=== PATIENT | female | born 1955 | race Caucasian/White ===

== ENCOUNTER 2021-05-18 09:30 | Emergency (ER) | payer OTHER ==
--- NOTE | 2021-05-18 09:51 | ERPHSYRPT ---
- History of Present Illness Time Seen by Provider: 05/18/21 09:51 Source: patient Exam Limitations: no limitations Physician History: This is a 66-year-old white female patient who tested positive for COVID-19 infection back in March 2021 and presents with pain in her right calf. The patient has a history of DVT/PE in the past. She is no longer on any anticoagulation therapy. Recently, the patient traveled to and from [place]. She has had pain in the right calf for 5 days. She has no cough. She has no hemoptysis. She has no chest pain or shortness of breath. Her pain is localized into her right calf. Method of Injury: other (No injury) Occurred: days ago (5) Quality: constant, aching Severity of Pain-Max: mild (To moderate) Severity of Pain-Current: mild (To moderate) Lower Extremities Pain: leg: right (Calf) Modifying Factors: Improves With: movement Associated Symptoms: other (Right calf pain with ambulation) Allergies/Adverse Reactions: Penicillins Allergy (Verified 05/18/21 09:41) Home Medications: Metoprolol Succinate 12.5 mg PO DAILY 05/18/21 [History] Travel Risk - International Travel Have you traveled outside of the country in past 3 weeks: No - Coronavirus Screening Are you exhibiting any of the following symptoms?: No Close contact with a COVID-19 positive Pt in past 14-21 Days: No - Review of Systems Constitutional: No Symptoms Eyes: No Symptoms Ears, Nose, & Throat: No Symptoms Respiratory: No Symptoms Cardiac: No Symptoms Abdominal/Gastrointestinal: No Symptoms Genitourinary Symptoms: No Symptoms Musculoskeletal: Other (Painful right calf) Skin: No Symptoms Neurological: No Symptoms Psychological: No Symptoms Endocrine: No Symptoms Hematologic/Lymphatic: No Symptoms Immunological/Allergic: No Symptoms All Other Systems: Reviewed and Negative - Past Medical History Pertinent Past Medical History: Yes - Past Surgical History Past Surgical History: Yes - Nursing Vital Signs Nursing Vital Signs: Initial Vital Signs Temperature 97.8 F 05/18/21 09:44 Pulse Rate 68 05/18/21 09:44 Respiratory Rate 18 05/18/21 09:44 Blood Pressure 141/70 05/18/21 09:44 O2 Sat by Pulse Oximetry 100 05/18/21 09:44 Pain Scale Pain Intensity 5 - Physical Exam General Appearance: no apparent distress, alert, anxiety Eyes, Ears, Nose, Throat Exam: normal ENT inspection, moist mucous membranes Neck Exam: normal inspection, non-tender, supple, full range of motion Cardiovascular/Respiratory Exam: chest non-tender, normal breath sounds, regular rate/rhythm, heart sounds normal, no respiratory distress Gastrointestinal/Abdominal Exam: non-tender Back Exam: normal inspection, normal range of motion, No CVA tenderness, No vertebral tenderness Hips Exam: bilateral: non-tender, normal inspection, normal range of motion, no evidence of injury Legs Exam: right leg: soft tissue tenderness (Tenderness right calf. No evidence of swelling and no evidence of palpable cord. Positive Homans' sign right calf), left leg: non-tender, bilateral leg: normal inspection, normal range of motion, no evidence of injury Knees Exam: bilateral knee: non-tender, normal inspection, normal range of motion, no evidence of injury Ankle Exam: bilateral ankle: non-tender, normal inspection, normal range of motion, no evidence of injury Foot Exam: bilateral foot: non-tender, normal inspection, normal range of motion, no evidence of injury Neuro/Tendon Exam: normal sensation, normal motor functions, normal tendon functions Mental Status Exam: alert, oriented x 3, cooperative Skin Exam: normal color, warm, dry SpO2 Interpretation: normal O2 Delivery: Room Air - Course Nursing assessment & vital signs reviewed: Yes Ordered Tests: Active Orders 24 hr Category Date Time Status VENOUS UNILAT/LIMITED EXTREMIT [US] Stat Exams 05/18/21 09:57 Taken - Progress Progress: unchanged, pain not gone completely Progress Note: 05/18/21 10:45 Venous Doppler positive for distal (ankle level) venous thrombus. This is per metallurgy laboratory technician Counseled pt/family regarding: diagnosis, need for follow-up, rad results - Departure Departure Disposition: Home Clinical Impression: Deep venous thrombosis of distal end of right lower extremity Condition: Stable Critical Care Time: No Additional Instructions: Use Tylenol 650 mg every 6 hours for pain control. May apply heating pad to area at medium level 3 times a day but not directly onto your skin. Call your aerodynamic consultant today to make arrangements for an outpatient appointment for further evaluation and management. Take your medications as prescribed. They also contact Dr. Vicente's office to make arrangements for an outpatient appointment with them. Prescriptions: Apixaban [Eliquis 5 mg Tablet] 5 mg PO BID #30 tablet
[2021-05-18] MEDS ORDERED: ENOXAPARIN SODIUM SQ ONE ×2 (10:44→10:52)
--- NOTE | 2021-05-18 10:53 | XRAY ---
Indication: Right calf pain. Two-dimensional sonogram and color Doppler imaging of the major venous vessels of the right leg performed. Comparison: None Occluding thrombus in the posterior tibial vein. No thrombus seen in the remaining deep venous vessels of the right leg including greater saphenous vein. Patent veins demonstrate normal compressibility. Venous waveforms are normal with and without augmentation. Impression: Occluding DVT posterior tibial vein.
[2021-05-18 10:54] VITALS: BP 137/78; PULSE 58; O2SAT 99
== END 2021-05-18 10:58 | disposition home or self-care (01) ==
LOC: ED 09:30
DX: I82.441 Acute embolism and thrombosis of right tibial vein (principal); Z86.16 Personal history of COVID-19; Z86.718 Personal history of other venous thrombosis and embolism; Z79.01 Long term (current) use of anticoagulants
CPT/HCPCS: 93971; 96372; 99283; J1650

== ENCOUNTER 2021-05-21 20:08 | Emergency (ER) | payer OTHER ==
--- NOTE | 2021-05-21 20:33 | ERPHSYRPT ---
- History of Present Illness Time Seen by Provider: 05/21/21 20:15 Source: patient Exam Limitations: no limitations Patient Subjective Stated Complaint: burning pain to chest and left arm, back pain off and on all day. loose stools today, headache ever since started taking Eliquis. Triage Nursing Assessment: pt c/o rt chest burning sensation and rt shoulder pain, mid back pain. Pt has had loose stools today, headache for 2 days since taking the Eliquis. Lungs clear, heart tones reg. Pt appears to be anxious. Physician History: This 66-year-old white female who is a patient of Dr. Vicente and was just seen in the emergency room on 05/18/2021 and found to have a DVT in her right lower extremity. She was placed on Eliquis. Patient verbalizes that she is very nervous and anxious about her health. She also has signs of palpitation worry and is tearful. Intermittent throughout the day she has had some palpitations and burning sensation in her chest. Patient was already seen by her primary care doctor today. She did not have those symptoms at that time. Her doctor did not send her to the emergency room or have her undergo any types of study for this condition. Patient is on metoprolol for palpitations. Patient also arranged an appointment with her wheel cleaner. Timing/Duration: today Activities at Onset: none Quality: burning Location: substernal, central Chest Pain Radiation: no radiation Severity of Pain-Max: mild (To moderate) Severity of Pain-Current: mild (Moderate) Modifying Factors: Improves With: nothing Nitro Today/Relief: no nitro taken today Aspirin Treatment Today: no aspirin today Associated Symptoms: chest pain (Described as a burning) Prior Chest Pain/Cardiac Workup: no prior chest pain, no prior cardiac workup, non-cardiac Allergies/Adverse Reactions: Penicillins Allergy (Verified 05/21/21 20:28) Home Medications: Metoprolol Succinate 12.5 mg PO DAILY 05/18/21 [History] Hx Influenza Vaccination/Date Given: No Hx Pneumococcal Vaccination/Date Given: No Travel Risk - International Travel Have you traveled outside of the country in past 3 weeks: No - Coronavirus Screening Are you exhibiting any of the following symptoms?: Yes Symptoms: Vomiting/Diarrhea, Headaches/Body Aches/Fatigue Close contact with a COVID-19 positive Pt in past 14-21 Days: No - Vaccine Status Have you recieved a Covid-19 vaccination: Yes 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 - Vaccination Dates Date of 2cond Vaccination (if applicable): 08/2020 - Review of Systems Constitutional: No Symptoms Eyes: No Symptoms Ears, Nose, & Throat: No Symptoms Respiratory: No Symptoms Cardiac: Chest Pain (Described as a burning), Palpitations Abdominal/Gastrointestinal: No Symptoms Genitourinary Symptoms: No Symptoms Musculoskeletal: No Symptoms Skin: No Symptoms Neurological: No Symptoms Psychological: No Symptoms Endocrine: No Symptoms Hematologic/Lymphatic: No Symptoms Immunological/Allergic: No Symptoms All Other Systems: Reviewed and Negative - Past Medical History Pertinent Past Medical History: Yes Neurological History: No Pertinent History ENT History: No Pertinent History Cardiac History: Arrhythmia, Deep Vein Thrombosis Respiratory History: Asthma Endocrine Medical History: No Pertinent History Musculoskeletal History: No Pertinent History GI Medical History: No Pertinent History History: No Pertinent History Psycho-Social History: No Pertinent History Female Reproductive Disorders: No Pertinent History Other Medical History: Eczema. hx of PE 10 years ago - Past Surgical History Past Surgical History: Yes Neuro Surgical History: No Pertinent History Cardiac: No Pertinent History Respiratory: No Pertinent History Gastrointestinal: No Pertinent History Genitourinary: No Pertinent History Musculoskeletal: Orthopedic Surgery Female Surgical History: Hysterectomy Other Surgical History: Back and neck surgery X 2 - Social History Smoking Status: Never smoker Exposure to second hand smoke: No Drug Use: none Patient Lives Alone: No - Female History Hx Now: No - Nursing Vital Signs Nursing Vital Signs: Initial Vital Signs Temperature 98.0 F 05/21/21 20:09 Pulse Rate 96 H 05/21/21 20:09 Respiratory Rate 20 05/21/21 20:09 Blood Pressure 125/57 05/21/21 20:09 O2 Sat by Pulse Oximetry 97 05/21/21 20:09 Pain Scale Pain Intensity 5 - Physical Exam General Appearance: no apparent distress, alert, anxiety Eye Exam: PERRL/EOMI, eyes nml inspection Ears, Nose, Throat Exam: normal ENT inspection, moist mucous membranes Neck Exam: normal inspection, non-tender, supple, full range of motion Respiratory Exam: normal breath sounds, chest tenderness, lungs clear, airway intact, No respiratory distress Cardiovascular Exam: regular rate/rhythm, normal heart sounds, normal peripheral pulses Gastrointestinal/Abdomen Exam: soft, normal bowel sounds, No tenderness Pelvic Exam: not done Rectal Exam: not done Back Exam: normal inspection, normal range of motion, No CVA tenderness, No vertebral tenderness Extremity Exam: normal inspection, normal range of motion, pelvis stable Neurologic Exam: alert, oriented x 3, cooperative, gas scrubber operator II-XII nml as tested, normal mood/affect, nml cerebellar function, nml station & gait, sensation nml Skin Exam: normal color, warm, dry Lymphatic Exam: No adenopathy SpO2 Interpretation: normal SpO2: 97 O2 Delivery: Room Air - Course Nursing assessment & vital signs reviewed: Yes EKG Interpreted by Me: RATE (95), Sinus Rhythm, NORMAL AXIS, NORMAL INTERVALS, NORMAL QRS, NORMAL ST-T, Other (No acute ischemic changes on today's EKG.) Ordered Tests: Active Orders 24 hr Category Date Time Status EKG-ER Only STAT Care 05/21/21 20:33 Active IV Insertion STAT Care 05/21/21 20:33 Active CHEST WITH CONTRAST [CT] Stat Exams 05/21/21 20:33 Taken CBC W DIFF Stat Lab 05/21/21 20:40 Completed CMP Stat Lab 05/21/21 20:40 Completed MAGNESIUM Stat Lab 05/21/21 20:40 Completed NT PRO BNP Stat Lab 05/21/21 20:40 Completed TROPONIN Q3H Lab 05/21/21 20:40 Completed TROPONIN Q3H Lab 05/21/21 23:45 Ordered TROPONIN Q3H Lab 05/22/21 02:45 Ordered TROPONIN Q3H Lab 05/22/21 05:45 Ordered TROPONIN Q3H Lab 05/22/21 08:45 Ordered Medication Summary Generic Name Dose Route Start Last Admin Trade Name Freq PRN Reason Stop Dose Admin Sodium Chloride 1,000 mls @ 100 mls/hr 05/21/21 20:45 05/21/21 20:45 Sodium Chloride 0.9% 1000 Ml IV 06/20/21 20:44 100 mls/hr .Q10H RICO Administration Discontinued Medications Generic Name Dose Route Start Last Admin Trade Name Freq PRN Reason Stop Dose Admin Lorazepam 1 mg 05/21/21 21:36 05/21/21 22:44 Lorazepam 2 Mg/1 Ml 2 Mg Vial IV 05/21/21 21:37 1 mg STAT ONE Administration Lorazepam Confirm 05/21/21 22:42 Lorazepam 2 Mg/1 Ml 2 Mg Vial Administered 05/21/21 22:43 Dose 2 mg .ROUTE .STK-MED ONE Lab/Rad Data: Laboratory Result Diagrams 05/21/21 20:40 05/21/21 20:40 Laboratory Results 05/21/21 05/21/21 05/21/21 Range/Units 20:40 20:40 20:40 WBC 8.6 (4.0-10.5) K/mm3 RBC 4.43 (4.1-5.4) M/mm3 Hgb 13.3 (12.0-16.0) gm/dl Hct 41.3 (35-47) % MCV 93.2 (78-100) fl MCH 30.0 (26-32) pg MCHC 32.2 (32-36) g/dl RDW 13.0 (11.5-14.0) % Plt Count 299 (150-450) K/mm3 MPV 9.0 (7.5-11.0) fl Gran % 76.6 H (36.0-66.0) % Eos # (Auto) 0.08 (0-0.5) Absolute Lymphs (auto) 1.26 (1.0-4.6) Absolute Monos (auto) 0.63 (0.0-1.3) Lymphocytes % 14.7 L (24.0-44.0) % Monocytes % 7.4 (0.0-12.0) % Eosinophils % 0.9 (0.00-5.0) % Basophils % 0.4 (0.0-0.4) % Absolute Granulocytes 6.55 (1.4-6.9) Basophils # 0.03 (0-0.4) Sodium 141 (137-145) mmol/L Potassium 4.0 (3.5-5.1) mmol/L Chloride 106 (98-107) mmol/L Carbon Dioxide 26 (22-30) mmol/L Anion Gap 13.6 (5-15) MEQ/L BUN 13 (7-17) mg/dL Creatinine 0.67 (0.52-1.04) mg/dL Estimated GFR > 60.0 ML/MIN Glucose 114 H (74-106) mg/dL Calcium 9.7 (8.4-10.2) mg/dL Magnesium 1.9 (1.6-2.3) mg/dL Total Bilirubin 0.50 (0.2-1.3) mg/dL AST 25 (14-36) U/L ALT 27 (0-35) U/L Alkaline Phosphatase 70 (38-126) U/L Troponin I < 0.012 (0.000-0.034) ng/mL NT-Pro-B Natriuret Pep 37.1 (0-900) pg/mL Serum Total Protein 6.7 (6.3-8.2) g/dL Albumin 4.1 (3.5-5.0) g/dL - Progress Progress: improved, re-examined Air Movement: good Progress Note: 05/21/21 23:26 CAT scan of the chest with contrast shows small filling defects in the right mid to lower distal lung. The heart is normal per radiologist report. Medical decision making: I spoke with the patient's primary care doctor Dr. Vicente. I reviewed the patient history, physical findings and the CT a of the chest results. Dr. Vicente also feels that the patient does not need to be admitted into the hospital at this time. She can be discharged to home. We will increase the Eliquis to 10 mg orally twice a day. The original prescription was written on May 18, 2021. It was for Eliquis 5 mg number 30 tablets. Patient took her 5 mg twice a day Eliquis since that time and again today. She still has, according to her, 23 more doses. She has an appointment to see her wheel cleaner on May 25, 2021. She was told to increase her Eliquis dosing to 10 mg orally twice a day. She should have plenty of her current Eliquis tablets to get her to an past her hematology appointment on May 25, 2021. Patient's room air oxygenation at the time of discharge is 97% and her heart rate was in the low 80s. 05/21/21 23:29 05/21/21 23:30 Blood Culture(s) Obtained: No Discussed with DrDonte: Gilberto Counseled pt/family regarding: lab results, diagnosis, need for follow-up, rad results - Departure Departure Disposition: Home Clinical Impression: Right pulmonary embolus Condition: Stable Critical Care Time: Yes Critical Care Time(excluding separately billable procedures): Critical 30-74 mins Referrals: DIONISIO VICENTE, DO [Primary Care Provider] - Follow up/PCP as directed Additional Instructions: Increase your Eliquis to 10 mg orally twice a day. Do not change this dosing until after you were evaluated by your wheel cleaner on May 25, 2021. Take your other medications as prescribed. Return to the emergency department if your symptoms worsen.
[2021-05-21] MEDS ORDERED: Sodium Chloride 0.9% 1000 ML 1,000 ML ONE (20:43)
[2021-05-21] MEDS ORDERED: Sodium Chloride 0.9% 1000 ML 1,000 ML IV SCH (20:45)
[2021-05-21 20:50] LABS: Absolute Neutrophil Ct (ANC) 6.55 (1.4-6.9); Basophil (Absolute #) 0.03 (0-0.4); Eosinophil % 0.9 % (0.00-5.0); Eosinophil (Absolute #) 0.08 (0-0.5); Hematocrit 41.3 % (35-47); Hemoglobin 13.3 gm/dl (12.0-16.0); Lymphocyte (Absolute #) 1.26 (1.0-4.6); Lymphocytes % 14.7 % (24.0-44.0); Mean Cell Volume 93.2 fl (78-100); Mean Corpuscular Hgb Concent. 32.2 g/dl (32-36); Monocyte (Absolute #) 0.63 (0.0-1.3); Monocytes % 7.4 % (0.0-12.0); Neutrophil % 76.6 % (36.0-66.0); Platelet Count 299 K/mm3 (150-450); Red Blood Count 4.43 M/mm3 (4.1-5.4); White Blood Count 8.6 K/mm3 (4.0-10.5)
[2021-05-21 21:22] LABS: ALBUMIN 4.1 g/dL (3.5-5.0); ALKALINE PHOSPHATASE 70 U/L (38-126); ANION GAP 13.6 MEQ/L (5-15); BLOOD UREA NITROGEN 13 mg/dL (7-17); CHLORIDE 106 mmol/L (98-107); Calcium 9.7 mg/dL (8.4-10.2); Carbon Dioxide 26 mmol/L (22-30); Creatinine 1 0.67 mg/dL (0.52-1.04); EST GLOMERULAR FILTRATION RATE > 60.0 ML/MIN; Glucose 114 mg/dL (74-106); MAGNESIUM 1.9 mg/dL (1.6-2.3); NT PRO BNP 37.1 pg/mL (0-900); SGOT/AST 25 U/L (14-36); SGPT/ALT 27 U/L (0-35); SODIUM 141 mmol/L (137-145); Total Protein 6.7 g/dL (6.3-8.2)
[2021-05-21] MEDS ORDERED: Ativan 2 MG/1 ML VIAL IV ONE (21:36)
[2021-05-21] MEDS ORDERED: Ativan 2 MG/1 ML VIAL ONE (22:42)
[2021-05-21] MEDS ORDERED: ELIQUIS 2.5 MG TABLET PO ONE (23:26)
[2021-05-22 00:22] VITALS: BP 126/75; PULSE 76; O2SAT 98
--- NOTE | 2021-05-22 08:25 | XRAY ---
Indication: Chest pain and palpitations. Right leg DVT. Multiple contiguous axial images obtained through the chest using 80 cc of Isovue-370 contrast and PE protocol. Comparison: None Good opacification of the pulmonary arteries to include the lobar and segmental branches. Tiny nonoccluding pulmonary emboli in the medial segmental branch right middle lobe and medial segmental branch right lower lobe. Heart not enlarged. Aorta is normal in course and caliber. Tiny subcarinal and distal paraesophageal calcified nodes. No pathologic mediastinal/hilar lymphadenopathy. Lungs demonstrates mild dependent atelectasis. No suspicious pulmonary mass, infiltrate, or effusion. Bony thorax intact with minimal degenerative changes throughout the spine and C7-T1 fusion hardware. Limited upper abdomen demonstrates two 1.5 cm hepatic cysts, two left renal cysts largest 2 cm and splenic calcified granulomas. Impression: 1. Nonoccluding right middle and right lower lobe pulmonary emboli. 2. Incidental hepatic/left renal cysts and old granulomatous disease. Comment: Preliminary interpretation made by C. No critical discrepancy.
== END 2021-05-22 00:23 | disposition home or self-care (01) ==
LOC: ED 20:08
DX: I26.99 Other pulmonary embolism without acute cor pulmonale (principal); R07.9 Chest pain, unspecified; R00.2 Palpitations; Z86.711 Personal history of pulmonary embolism; Z79.01 Long term (current) use of anticoagulants
CPT/HCPCS: 36000; 36415; 71260; 80053; 83735; 83880; 84484; 85025; 93005; 96374; 99284; 99291; J2060; A9270-GY

== ENCOUNTER 2022-01-19 11:10 | Emergency (ER) | payer OTHER ==
--- NOTE | 2022-01-19 11:13 | ERPHSYRPT ---
- History of Present Illness Time Seen by Provider: 01/19/22 11:13 Source: patient Exam Limitations: no limitations Physician History: This is a 66-year-old white female patient of Dr. Vicente who presents with shakiness and weakness. She also felt that maybe she had swelling in her feet and ankles. She wakes up every morning and takes her heart rate and her blood p ressure. Patient is on metoprolol chronically for arrhythmia/chronic tachycardia issues. 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 She denies chest pain. She denies shortness of breath. She denies abdominal pain. Patient has a history of asthma. Her first systolic blood pressure that she took this morning was 148 per her report. She drove in the car to a meeting and the shakiness and weakness was worse that she took her blood pressure again and the systolic pressure was in the 170s. She contacted her primary care physician's office who referred her to the [facility]. [facility] referred her to us. Patient arrives to the emergency department with the initial systolic blood pressure in the 140's and heart rate in the 60s. Patient seems anxious. Her blood sugar level on arrival to the emergency department is 114 Timing/Duration: today Severity: mild Modifying Factors: Improves With: nothing Associated Symptoms: weakness, No nausea, No vomiting, No abdominal pain, No shortness of breath, No chest pain Allergies/Adverse Reactions: cephalexin [From Keflex] Allergy (Mild, Verified 01/19/22 11:25) Rash Penicillins Allergy (Verified 05/21/21 20:28) Home Medications: Metoprolol Succinate 12.5 mg PO DAILY 05/18/21 [History] Apixaban [Eliquis 5 mg Tablet] 2.5 mg PO BID 01/19/22 [History] Hx Influenza Vaccination/Date Given: No Hx Pneumococcal Vaccination/Date Given: No Travel Risk - International Travel Have you traveled outside of the country in past 3 weeks: No - Coronavirus Screening Are you exhibiting any of the following symptoms?: No Close contact with a COVID-19 positive Pt in past 14-21 Days: No - Vaccine Status Have you recieved a Covid-19 vaccination: Yes Layout Former: Moderna - Vaccination Dates Date of 2cond Vaccination (if applicable): 08/2020 - Review of Systems Constitutional: Weakness Eyes: No Symptoms Ears, Nose, & Throat: No Symptoms Respiratory: No Symptoms Cardiac: No Symptoms Abdominal/Gastrointestinal: No Symptoms Genitourinary Symptoms: No Symptoms Musculoskeletal: No Symptoms Skin: No Symptoms Neurological: No Symptoms Psychological: Anxiety Endocrine: No Symptoms Hematologic/Lymphatic: No Symptoms Immunological/Allergic: No Symptoms All Other Systems: Reviewed and Negative - Past Medical History Pertinent Past Medical History: Yes Neurological History: No Pertinent History ENT History: No Pertinent History Cardiac History: Arrhythmia, Deep Vein Thrombosis Respiratory History: Asthma Endocrine Medical History: No Pertinent History Musculoskeletal History: No Pertinent History GI Medical History: No Pertinent History History: No Pertinent History Psycho-Social History: No Pertinent History Female Reproductive Disorders: No Pertinent History Other Medical History: Eczema. hx of PE 10 years ago - Past Surgical History Past Surgical History: Yes Neuro Surgical History: No Pertinent History Cardiac: No Pertinent History Respiratory: No Pertinent History Gastrointestinal: No Pertinent History Genitourinary: No Pertinent History Musculoskeletal: Orthopedic Surgery Female Surgical History: Hysterectomy Other Surgical History: Back and neck surgery X 2 - Social History Smoking Status: Never smoker Exposure to second hand smoke: No Drug Use: none Patient Lives Alone: No - Nursing Vital Signs Nursing Vital Signs: Initial Vital Signs Temperature 98.9 F 01/19/22 11:20 Pulse Rate 70 01/19/22 11:20 Respiratory Rate 22 01/19/22 11:20 Blood Pressure 148/60 01/19/22 11:20 O2 Sat by Pulse Oximetry 100 01/19/22 11:20 Pain Scale Pain Intensity 0 - Physical Exam General Appearance: no apparent distress, alert, anxiety Eye Exam: PERRL/EOMI, eyes nml inspection Ears, Nose, Throat Exam: normal ENT inspection, moist mucous membranes Neck Exam: normal inspection, non-tender, supple, full range of motion Respiratory Exam: normal breath sounds, lungs clear, airway intact, No chest tenderness, No respiratory distress Cardiovascular Exam: regular rate/rhythm, normal heart sounds, normal peripheral pulses Gastrointestinal/Abdomen Exam: soft, normal bowel sounds, No tenderness Pelvic Exam: not done Rectal Exam: not done Back Exam: normal inspection, normal range of motion, No CVA tenderness, No vertebral tenderness Extremity Exam: normal inspection, normal range of motion, pelvis stable Neurologic Exam: alert, oriented x 3, cooperative, mainspring strip gauger II-XII nml as tested, normal mood/affect, nml cerebellar function, nml station & gait, sensation nml Skin Exam: normal color, warm, dry Lymphatic Exam: No adenopathy SpO2 Interpretation: normal O2 Delivery: Room Air - Course Nursing assessment & vital signs reviewed: Yes EKG Interpreted by Me: RATE (68), Sinus Rhythm, NORMAL AXIS, NORMAL INTERVALS, NORMAL QRS, NORMAL ST-T, Other (No acute ischemic changes on today's EKG.) Ordered Tests: Active Orders 24 hr Category Date Time Status EKG-ER Only STAT Care 01/19/22 11:50 Active IV Insertion STAT Care 01/19/22 11:50 Active Pulse Oximetry (ED) STAT Care 01/19/22 11:50 Active CBC W DIFF Stat Lab 01/19/22 11:50 Completed CMP Stat Lab 01/19/22 11:50 Completed D-DIMER QUANTITATIVE Stat Lab 01/19/22 11:50 Completed [place] Screen Stat Lab 01/19/22 11:50 Completed NT PRO BNP Stat Lab 01/19/22 11:50 Completed POCT GLUCOSE Stat Lab 01/19/22 11:32 Completed T4 (Thyroxine) Stat Lab 01/19/22 11:50 Received TROPONIN Q4H Lab 01/19/22 12:00 Completed TROPONIN Q4H Lab 01/19/22 16:00 Ordered TROPONIN Q4H Lab 01/19/22 20:00 Ordered TSH [TSH, 3RD Generation] Stat Lab 01/19/22 11:50 Received UA W/RFX CULTURE Stat Lab 01/19/22 Completed Medication Summary Discontinued Medications Generic Name Dose Route Start Last Admin Trade Name Harini PRN Reason Stop Dose Admin Sodium Chloride 1,000 mls @ 999 mls/hr 01/19/22 11:50 01/19/22 12:38 Sodium Chloride 0.9% 1000 Ml IV 01/19/22 12:50 999 mls/hr .Q1H1M STA Administration Sodium Chloride Confirm 01/19/22 12:21 Sodium Chloride 0.9% 1000 Ml Administered 01/19/22 12:22 Dose 1,000 mls @ ud .ROUTE .STK-MED ONE Lab/Rad Data: Laboratory Result Diagrams 01/19/22 11:50 01/19/22 11:50 Laboratory Results 01/19/22 01/19/22 01/19/22 Range/Units Unknown 12:00 12:00 WBC (4.0-10.5) x10^3/uL RBC (4.1-5.4) x10^6/uL Hgb (12.0-16.0) g/dL Hct (35-47) % MCV (78-100) fL MCH (26-32) pg MCHC (32-36) g/dL RDW (11.5-14.0) % Plt Count (150-450) x10^3/uL MPV (7.5-11.0) fL Gran % (36.0-66.0) % Immature Gran % (Auto) (0.00-0.4) % Nucleat RBC Rel Count (0.00-0.1) % Eos # (Auto) (0-0.5) x10^3/uL Immature Gran # (Auto) (0.00-0.03) x10^3u/L Absolute Lymphs (auto) (1.0-4.6) x10^3/uL Absolute Monos (auto) (0.0-1.3) x10^3/uL Absolute Nucleated RBC (0.00-0.01) x10^3u/L Lymphocytes % (24.0-44.0) % Monocytes % (0.0-12.0) % Eosinophils % (0.00-5.0) % Basophils % (0.0-0.4) % Absolute Granulocytes (1.4-6.9) x10^3/uL Basophils # (0-0.4) x10^3/uL D-Dimer (0.0-0.50) mg/L Sodium (137-145) mmol/L Potassium (3.5-5.1) mmol/L Chloride (98-107) mmol/L Carbon Dioxide (22-30) mmol/L Anion Gap (5-15) MEQ/L BUN (7-17) mg/dL Creatinine (0.52-1.04) mg/dL Estimated GFR ML/MIN Glucose (74-106) mg/dL POC Glucometer (74 to 106) mg/dL Calcium (8.4-10.2) mg/dL Total Bilirubin (0.2-1.3) mg/dL AST (14-36) U/L ALT (0-35) U/L Alkaline Phosphatase (38-126) U/L Troponin I < 0.012 (0.000-0.034) ng/mL NT-Pro-B Natriuret Pep (0-900) pg/mL Serum Total Protein (6.3-8.2) g/dL Albumin (3.5-5.0) g/dL Urinalys Dipstick Clnc MAIN LAB Urine Color YELLOW (YELLOW) Urine Appearance CLEAR (CLEAR) Urine pH 6.0 (5-6) Ur Specific [place] <=1.005 (1.005-1.025) POC Urine Protein Conf NEGATIVE (Negative) Urine Ketones NEGATIVE (NEGATIVE) Urine Nitrite NEGATIVE (NEGATIVE) Urine Bilirubin NEGATIVE (NEGATIVE) Urine Urobilinogen 0.2 (0-1) mg/dL Urine Leukocytes NEGATIVE (NEGATIVE) Urine WBC (Auto) Not Reportable Urine RBC (Auto) Not Reportable U Epithel Cells (Auto) Not Reportable Urine Bacteria (Auto) Not Reportable Urine RBC NEGATIVE (0-5) Demetrio/ul Ur Culture Indicated? NO Urine Glucose NEGATIVE (NEGATIVE) mg/dL Monoscreen (Negative) Influenza Type A Ag NEGATIVE (NEGATIVE) Influenza Type B Ag NEGATIVE (NEGATIVE) RSV (PCR) NEGATIVE (Negative) SARS-CoV-2 (PCR) NEGATIVE (NEGATIVE) 01/19/22 01/19/22 01/19/22 Range/Units 11:50 11:50 11:50 WBC (4.0-10.5) x10^3/uL RBC (4.1-5.4) x10^6/uL Hgb (12.0-16.0) g/dL Hct (35-47) % MCV (78-100) fL MCH (26-32) pg MCHC (32-36) g/dL RDW (11.5-14.0) % Plt Count (150-450) x10^3/uL MPV (7.5-11.0) fL Gran % (36.0-66.0) % Immature Gran % (Auto) (0.00-0.4) % Nucleat RBC Rel Count (0.00-0.1) % Eos # (Auto) (0-0.5) x10^3/uL Immature Gran # (Auto) (0.00-0.03) x10^3u/L Absolute Lymphs (auto) (1.0-4.6) x10^3/uL Absolute Monos (auto) (0.0-1.3) x10^3/uL Absolute Nucleated RBC (0.00-0.01) x10^3u/L Lymphocytes % (24.0-44.0) % Monocytes % (0.0-12.0) % Eosinophils % (0.00-5.0) % Basophils % (0.0-0.4) % Absolute Granulocytes (1.4-6.9) x10^3/uL Basophils # (0-0.4) x10^3/uL D-Dimer < 0.19 (0.0-0.50) mg/L Sodium 142 (137-145) mmol/L Potassium 3.9 (3.5-5.1) mmol/L Chloride 107 (98-107) mmol/L Carbon Dioxide 27 (22-30) mmol/L Anion Gap 12.1 (5-15) MEQ/L BUN 14 (7-17) mg/dL Creatinine 0.57 (0.52-1.04) mg/dL Estimated GFR > 60.0 ML/MIN Glucose 121 H (74-106) mg/dL POC Glucometer (74 to 106) mg/dL Calcium 9.5 (8.4-10.2) mg/dL Total Bilirubin 0.70 (0.2-1.3) mg/dL AST 34 (14-36) U/L ALT 32 (0-35) U/L Alkaline Phosphatase 64 (38-126) U/L Troponin I (0.000-0.034) ng/mL NT-Pro-B Natriuret Pep 75.3 (0-900) pg/mL Serum Total Protein 7.6 (6.3-8.2) g/dL Albumin 4.6 (3.5-5.0) g/dL Urinalys Dipstick Clnc Urine Color (YELLOW) Urine Appearance (CLEAR) Urine pH (5-6) Ur Specific [place] (1.005-1.025) POC Urine Protein Conf (Negative) Urine Ketones (NEGATIVE) Urine Nitrite (NEGATIVE) Urine Bilirubin (NEGATIVE) Urine Urobilinogen (0-1) mg/dL Urine Leukocytes (NEGATIVE) Urine WBC (Auto) Urine RBC (Auto) U Epithel Cells (Auto) Urine Bacteria (Auto) Urine RBC (0-5) Demetrio/ul Ur Culture Indicated? Urine Glucose (NEGATIVE) mg/dL Monoscreen NEGATIVE (Negative) Influenza Type A Ag (NEGATIVE) Influenza Type B Ag (NEGATIVE) RSV (PCR) (Negative) SARS-CoV-2 (PCR) (NEGATIVE) 01/19/22 01/19/22 Range/Units 11:50 11:32 WBC 7.0 (4.0-10.5) x10^3/uL RBC 4.47 (4.1-5.4) x10^6/uL Hgb 13.3 (12.0-16.0) g/dL Hct 41.6 (35-47) % MCV 93.1 (78-100) fL MCH 29.8 (26-32) pg MCHC 32.0 (32-36) g/dL RDW 13.0 (11.5-14.0) % Plt Count 306 (150-450) x10^3/uL MPV 10.0 (7.5-11.0) fL Gran % 79.8 H (36.0-66.0) % Immature Gran % (Auto) 0.3 (0.00-0.4) % Nucleat RBC Rel Count 0.0 (0.00-0.1) % Eos # (Auto) 0.05 (0-0.5) x10^3/uL Immature Gran # (Auto) 0.02 (0.00-0.03) x10^3u/L Absolute Lymphs (auto) 0.85 L (1.0-4.6) x10^3/uL Absolute Monos (auto) 0.47 (0.0-1.3) x10^3/uL Absolute Nucleated RBC 0.00 (0.00-0.01) x10^3u/L Lymphocytes % 12.1 L (24.0-44.0) % Monocytes % 6.7 (0.0-12.0) % Eosinophils % 0.7 (0.00-5.0) % Basophils % 0.4 (0.0-0.4) % Absolute Granulocytes 5.58 (1.4-6.9) x10^3/uL Basophils # 0.03 (0-0.4) x10^3/uL D-Dimer (0.0-0.50) mg/L Sodium (137-145) mmol/L Potassium (3.5-5.1) mmol/L Chloride (98-107) mmol/L Carbon Dioxide (22-30) mmol/L Anion Gap (5-15) MEQ/L BUN (7-17) mg/dL Creatinine (0.52-1.04) mg/dL Estimated GFR ML/MIN Glucose (74-106) mg/dL POC Glucometer 114 H (74 to 106) mg/dL Calcium (8.4-10.2) mg/dL Total Bilirubin (0.2-1.3) mg/dL AST (14-36) U/L ALT (0-35) U/L Alkaline Phosphatase (38-126) U/L Troponin I (0.000-0.034) ng/mL NT-Pro-B Natriuret Pep (0-900) pg/mL Serum Total Protein (6.3-8.2) g/dL Albumin (3.5-5.0) g/dL Urinalys Dipstick Clnc Urine Color (YELLOW) Urine Appearance (CLEAR) Urine pH (5-6) Ur Specific [place] (1.005-1.025) POC Urine Protein Conf (Negative) Urine Ketones (NEGATIVE) Urine Nitrite (NEGATIVE) Urine Bilirubin (NEGATIVE) Urine Urobilinogen (0-1) mg/dL Urine Leukocytes (NEGATIVE) Urine WBC (Auto) Urine RBC (Auto) U Epithel Cells (Auto) Urine Bacteria (Auto) Urine RBC (0-5) Demetrio/ul Ur Culture Indicated? Urine Glucose (NEGATIVE) mg/dL Monoscreen (Negative) Influenza Type A Ag (NEGATIVE) Influenza Type B Ag (NEGATIVE) RSV (PCR) (Negative) SARS-CoV-2 (PCR) (NEGATIVE) - Progress Progress: improved Counseled pt/family regarding: lab results, diagnosis, need for follow-up - Departure Departure Disposition: Home Clinical Impression: Hypertension, Shakiness, Weakness Condition: Stable Critical Care Time: No Referrals: DIONISIO VICENTE DO [Primary Care Provider] - Follow up/PCP as directed Additional Instructions: Take your medication as prescribed. Follow-up with your primary care physician for further evaluation. Make sure you are drinking plenty of fluids.
[2022-01-19] MEDS ORDERED: Sodium Chloride 0.9% 1000 ML 1,000 ML IV STA (11:50)
[2022-01-19 12:12] LABS: Absolute Neutrophil Ct (ANC) 5.58 x10^3/uL (1.4-6.9); Basophil (Absolute #) 0.03 x10^3/uL (0-0.4); Eosinophil % 0.7 % (0.00-5.0); Eosinophil (Absolute #) 0.05 x10^3/uL (0-0.5); Hematocrit 41.6 % (35-47); Hemoglobin 13.3 g/dL (12.0-16.0); Lymphocyte (Absolute #) 0.85 x10^3/uL (1.0-4.6); Lymphocytes % 12.1 % (24.0-44.0); Mean Cell Volume 93.1 fL (78-100); Mean Corpuscular Hemoglobin 29.8 pg (26-32); Monocyte (Absolute #) 0.47 x10^3/uL (0.0-1.3); Monocytes % 6.7 % (0.0-12.0); Neutrophil % 79.8 % (36.0-66.0); Platelet Count 306 x10^3/uL (150-450); Red Blood Count 4.47 x10^6/uL (4.1-5.4)
[2022-01-19 12:14] LABS: Appearance CLEAR (CLEAR); Bilirubin NEGATIVE (NEGATIVE); Dipstick done @ ? MAIN LAB; Glucose NEGATIVE (NEGATIVE); Ketones NEGATIVE (NEGATIVE); Nitrite NEGATIVE (NEGATIVE); Protein,Urine Dip NEGATIVE (Negative); RBC NEGATIVE Ery/ul (0-5); Specific Gravity <=1.005 (1.005-1.025); Urobilinogen 0.2 mg/dL (0-1)
[2022-01-19 12:15] LABS: Urine Cultured Indicated? NO
[2022-01-19] MEDS ORDERED: Sodium Chloride 0.9% 1000 ML 1,000 ML ONE (12:21)
[2022-01-19 12:38] LABS: ALBUMIN 4.6 g/dL (3.5-5.0); ALKALINE PHOSPHATASE 64 U/L (38-126); ANION GAP 12.1 MEQ/L (5-15); BLOOD UREA NITROGEN 14 mg/dL (7-17); CHLORIDE 107 mmol/L (98-107); Calcium 9.5 mg/dL (8.4-10.2); Carbon Dioxide 27 mmol/L (22-30); Creatinine 1 0.57 mg/dL (0.52-1.04); EST GLOMERULAR FILTRATION RATE > 60.0 ML/MIN; Glucose 121 mg/dL (74-106); NT PRO BNP 75.3 pg/mL (0-900); Potassium 3.9 mmol/L (3.5-5.1); SGOT/AST 34 U/L (14-36); SGPT/ALT 32 U/L (0-35); SODIUM 142 mmol/L (137-145); Total Protein 7.6 g/dL (6.3-8.2)
[2022-01-19 12:40] LABS: INFLUENZA A NEGATIVE (NEGATIVE); INFLUENZA B NEGATIVE (NEGATIVE); RESPIRATORY SYNCTIAL VIRUS NEGATIVE (Negative); SARS-CoV-2 Xpert Express NEGATIVE (NEGATIVE)
[2022-01-19 13:01] LABS: T4 (Thyroxine) 9.99 ug/dL (5.53-10.96); TSH, 3RD Generation 1.6 mIU/L (0.47-4.68)
[2022-01-19 13:05] VITALS: BP 127/65; PULSE 97; O2SAT 98
== END 2022-01-19 13:50 | disposition home or self-care (01) ==
LOC: ED 11:10
DX: I10 Essential (primary) hypertension (principal); R25.1 Tremor, unspecified; R53.1 Weakness; Z79.01 Long term (current) use of anticoagulants
CPT/HCPCS: 0241U; 36000; 36415; 80053; 81015; 82947; 83880; 84436; 84443; 84484; 85025; 85379; 86308; 93005; 94760; 99284